=== PATIENT | female | born 1960 | race African-American/Black ===

== ENCOUNTER 2018-04-11 08:33 | Emergency (ER) | payer MEDICAID ==
[~2018-04-11] VITALS: Ht 162.6 cm; Wt 120.0 kg
[2018-04-11 08:44] VITALS: BP 123/70
== END 2018-04-11 18:09 | disposition left against medical advice (07) ==
LOC: ER 11:09
DX: H57.89 Other specified disorders of eye and adnexa (principal); Z53.21 Procedure and treatment not carried out due to patient leaving prior to being seen by health care provider

== ENCOUNTER 2018-04-12 06:01 | Emergency (ER) | payer MEDICAID ==
[~2018-04-12] VITALS: Ht 162.6 cm; Wt 111.0 kg
[2018-04-12] MEDS ORDERED: TETRACAINE 0.5% OPHTH DROPS 4ML LEFTEYE ONE (09:00)
[2018-04-12] MEDS ORDERED: LIDOCAINE/EPINEPHR/TETRACAINE 3ML TP ONE (09:08)
[2018-04-12] MEDS ORDERED: FLUORESCEIN SODIUM 1MG/STRIP LEFTEYE ONE (09:15)
[2018-04-12 10:16] VITALS: BP 137/86
== END 2018-04-12 10:22 | disposition home or self-care (01) ==
LOC: ER 06:01
DX: H10.9 Unspecified conjunctivitis (principal); T15.92XA Foreign body on external eye, part unspecified, left eye, initial encounter; I10 Essential (primary) hypertension; F17.200 Nicotine dependence, unspecified, uncomplicated; X58.XXXA Exposure to other specified factors, initial encounter; Y93.89 Activity, other specified; Y92.89 Other specified places as the place of occurrence of the external cause
CPT/HCPCS: 99283

== ENCOUNTER 2021-11-27 05:58 | Emergency (ER) | payer MEDICAID ==
[~2021-11-27] VITALS: Ht 160 cm; Wt 113.0 kg
[2021-11-27 06:05] VITALS: BP 154/94
[2021-11-27] MEDS ORDERED: IBUPROFEN 400MG TABLET PO ONE (06:30)
[2021-11-27] MEDS ORDERED: ACETAMINOPHEN 325MG TABLET PO ONE (06:45)
[2021-11-27] MEDS ORDERED: ACET-2708 PO (07:14)
== END 2021-11-27 07:39 | disposition home or self-care (01) ==
LOC: ER 05:58
DX: G89.18 Other acute postprocedural pain (principal); M79.674 Pain in right toe(s); I10 Essential (primary) hypertension; F41.9 Anxiety disorder, unspecified; Z98.890 Other specified postprocedural states; Z91.040 Latex allergy status; Z88.0 Allergy status to penicillin; Z91.013 Allergy to seafood
CPT/HCPCS: 73630; 99283

== ENCOUNTER 2022-04-05 05:36 | Emergency (ER) | payer MEDICARE ==
[~2022-04-05] VITALS: Ht 162.6 cm; Wt 118.2 kg
[~2022-04-05 05:36] MED LIST: ACET-2708 PO
[2022-04-05] MEDS ORDERED: TOPUD PO (07:08)
[2022-04-05 07:16] VITALS: BP 114/75
== END 2022-04-05 07:18 | disposition home or self-care (01) ==
LOC: ER 05:36
DX: M25.522 Pain in left elbow (principal); F41.9 Anxiety disorder, unspecified; I10 Essential (primary) hypertension; Z88.0 Allergy status to penicillin; Z91.013 Allergy to seafood; Z91.040 Latex allergy status; Z98.890 Other specified postprocedural states
CPT/HCPCS: 73080; 99283

== ENCOUNTER 2023-09-29 02:59 | Emergency (ER) | payer MEDICAID, MEDICARE ==
[~2023-09-29] VITALS: Ht 162.6 cm; Wt 118.0 kg
[~2023-09-29 02:59] MED LIST changes: +TOPUD PO
[2023-09-29 03:16] VITALS: O2SAT 98
[2023-09-29 04:03] LABS: BASOPHILS % 0.6 % (0.0-2.0); EOSINOPHILS % 0.2 % (0.0-5.0); HEMATOCRIT. 39.1 % (36.0-48.0); LYMPHOCYTES % 16.2 % (20.0-50.0); MEAN CORPUSCULAR HEMOGLOBIN 27.5 pg (28.0-32.0); MEAN CORPUSCULAR HGB CONC 33.2 g/dL (31.0-37.0); MEAN PLATELET VOLUME 8.5 fl (7.4-10.4); PLATELET 342 x1000/uL (130-400); RED BLOOD CELL COUNT 4.71 mill/uL (4.2-5.4); RED CELL DISTRIBUTION WIDTH 14.7 % (11.6-14.6); WHITE BLOOD COUNT 13.8 x1000/uL (4.5-11.0)
[2023-09-29 04:08] LABS: CHLORIDE 102 mEq/L (98-107); POTASSIUM 4.1 mEq/L (3.5-5.1); SODIUM 135 mEq/L (136-145)
[2023-09-29 04:09] LABS: CARBON DIOXIDE 24 mEq/L (21-32)
[2023-09-29 04:10] LABS: CALCIUM 9.4 mg/dL (8.7-10.4)
[2023-09-29 04:14] LABS: CREATININE 0.8 mg/dL (0.6-1.0); GLUCOSE 119 mg/dL (70-105)
[2023-09-29 04:15] LABS: UREA NITROGEN BLOOD 10 mg/dL (9-23)
[2023-09-29 04:16] LABS: ALANINE AMINOTRANSFERASE < 7 IU/L (10-49); ALBUMIN 4.4 g/dL (3.2-4.8); ASPARTATE AMINOTRANSFERASE 13 IU/L (<34)
[2023-09-29 04:17] LABS: BILIRUBIN TOTAL 0.6 mg/dL (0.1-1.0); PROTEIN TOTAL 8.3 g/dL (6.0-8.3)
[2023-09-29 04:18] LABS: HCG SCREEN NEGATIVE
[2023-09-29 04:23] LABS: TROPONIN I HIGH SENSITIVITY < 4 ng/L (3.0-34)
[2023-09-29 05:45] LABS: CLARITY URINE CLEAR (CLEAR); COLOR URINE YELLOW (YELLOW); GLUCOSE URINE NEGATIVE (NEGATIVE); KETONES URINE NEGATIVE (NEGATIVE); LEUKOCYTE ESTERASE URINE TRACE (NEGATIVE); NITRITE URINE NEGATIVE (NEGATIVE); OCCULT BLOOD URINE 2+ (NEGATIVE); PH URINE 6.5 (4.5-8.0); PROTEIN URINE NEGATIVE (NEGATIVE); SPECIFIC GRAVITY URINE 1.015 (1.005-1.030)
[2023-09-29 06:27] LABS: WBC URINE 0-2 /hpf (0-2)
[2023-09-29 06:28] LABS: BACTERIA URINE TRACE; SQUAMOUS EPITHELIAL CELL URINE FEW /lpf (RARE/1+)
[2023-09-29 10:00] VITALS: BP 124/81; PULSE 82; RESP 20; TEMP 98.1
[2023-09-29] MEDS ORDERED: LEVO750T68 MT (10:02)
[2023-09-29] MEDS ORDERED: METR-167 MT (10:02)
[2023-09-29] MEDS: METRONIDAZOLE 500MG TABLET PO ONE (10:39)
[2023-09-29] MEDS: LEVOFLOXACIN 250MG TABLET PO ONE (10:39)
== END 2023-09-29 10:16 | disposition home or self-care (01) ==
LOC: ER 03:10
DX: K57.92 Diverticulitis of intestine, part unspecified, without perforation or abscess without bleeding (principal); I10 Essential (primary) hypertension; Z98.890 Other specified postprocedural states; Z79.899 Other long term (current) drug therapy; Z88.0 Allergy status to penicillin
CPT/HCPCS: 80053; 81003; 81025; 84703; 83605; 83690; 85025; 84484; 36415; 74176; 93005; 99284; Z7610 ×2

== ENCOUNTER 2024-09-20 15:11 | Emergency (ER) | payer OTHER ==
[~2024-09-20] VITALS: Ht 160 cm; Wt 102.0 kg
[~2024-09-20 15:11] MED LIST changes: +LEVO750T68 MT; +METR-167 MT
[2024-09-20 15:14] VITALS: O2SAT 98
[2024-09-20 15:57] VITALS: BP 148/93; PULSE 81; RESP 18; TEMP 36.8; O2SAT 98
== END 2024-09-20 17:38 | disposition left against medical advice (07) ==
LOC: ER 15:11
DX: M54.9 Dorsalgia, unspecified (principal); I10 Essential (primary) hypertension; G47.30 Sleep apnea, unspecified; Z53.21 Procedure and treatment not carried out due to patient leaving prior to being seen by health care provider

== ENCOUNTER 2024-10-19 18:41 | Emergency (ER) | payer OTHER ==
[~2024-10-19] VITALS: Ht 162.6 cm; Wt 102.0 kg
[2024-10-19] MEDS: PREDNISONE 20MG TABLET PO ONE (19:45)
[2024-10-19 19:49] LABS: BASOPHILS % 1.1 % (0.0-2.0); EOSINOPHILS % 2.5 % (0.0-5.0); HEMATOCRIT. 40.1 % (36.0-48.0); HEMOGLOBIN. 13.1 g/dL (12.0-16.0); LYMPHOCYTES % 33.7 % (20.0-50.0); MEAN CORPUSCULAR HEMOGLOBIN 27.5 pg (28.0-32.0); MEAN CORPUSCULAR HGB CONC 32.7 g/dL (31.0-37.0); MONOCYTES % 8.9 % (2.0-8.0); NEUTROPHILS % 53.8 % (40.0-76.0); PLATELET 324 x1000/uL (130-400); RED BLOOD CELL COUNT 4.78 mill/uL (4.2-5.4)
[2024-10-19 20:01] VITALS: PULSE 98; RESP 16; O2SAT 98
[2024-10-19] MEDS: IPRATROPIUM/ALBUTEROL 0.5-3(2.5)MG/3ML NEB HHN ONE (20:01)
[2024-10-19 20:02] LABS: CHLORIDE 106 mEq/L (98-107); POTASSIUM 3.8 mEq/L (3.5-5.1); SODIUM 139 mEq/L (136-145)
[2024-10-19 20:03] LABS: CARBON DIOXIDE 27 mEq/L (21-32)
[2024-10-19 20:04] LABS: CALCIUM 9.1 mg/dL (8.7-10.4)
[2024-10-19 20:08] LABS: CREATININE 0.8 mg/dL (0.6-1.0)
[2024-10-19 20:09] LABS: GLUCOSE 115 mg/dL (70-105); UREA NITROGEN BLOOD 12 mg/dL (9-23)
[2024-10-19 20:37] LABS: TROPONIN I HIGH SENSITIVITY < 4 ng/L (3.0-34)
[2024-10-19 21:38] LABS: CLARITY URINE CLEAR (CLEAR); COLOR URINE ORANGE (YELLOW); GLUCOSE URINE NEGATIVE (NEGATIVE); KETONES URINE NEGATIVE (NEGATIVE); LEUKOCYTE ESTERASE URINE 1+ (NEGATIVE); NITRITE URINE POSITIVE (NEGATIVE); OCCULT BLOOD URINE NEGATIVE (NEGATIVE); PROTEIN URINE NEGATIVE (NEGATIVE); SPECIFIC GRAVITY URINE 1.009 (1.005-1.030)
[2024-10-19 21:55] LABS: BACTERIA URINE TRACE; RBC URINE 0-2 /hpf (0-2); SQUAMOUS EPITHELIAL CELL URINE FEW /lpf (RARE/1+); WBC URINE 0-2 /hpf (0-2)
[2024-10-19] MEDS ORDERED: ALBU18HF2 IH (22:01)
[2024-10-19] MEDS ORDERED: P50 MT (22:01)
[2024-10-19] MEDS ORDERED: CEFP200T14 MT (22:05)
[2024-10-19 22:31] LABS: INFLUENZA TYPE A Presumptive Negative (Pres. Neg.)
[2024-10-19 22:32] LABS: INFLUENZA TYPE B Presumptive Negative (Pres. Neg.)
[2024-10-19 22:33] LABS: RESPIRATORY SYNCYTIAL VIRUS Not Detected (Not Detectd)
[2024-10-19 23:16] VITALS: BP 128/79; PULSE 88; RESP 14; TEMP 36.8; O2SAT 97
== END 2024-10-19 23:16 | disposition home or self-care (01) ==
LOC: ER 18:41
DX: J45.909 Unspecified asthma, uncomplicated (principal); N39.0 Urinary tract infection, site not specified; G47.30 Sleep apnea, unspecified; I10 Essential (primary) hypertension; M19.90 Unspecified osteoarthritis, unspecified site; Z88.0 Allergy status to penicillin; Z20.822 Contact with and (suspected) exposure to COVID-19
CPT/HCPCS: 99285; 71045; 87426; 80048; 81003; 83880; 85025; 87420; 84484; 87804 ×2; 36415; 94640; 93005; J7512; 94070; 94760

== ENCOUNTER 2025-01-31 08:56 | Emergency (ER) | payer OTHER ==
[~2025-01-31] VITALS: Ht 160 cm; Wt 97.0 kg
[~2025-01-31 08:56] MED LIST changes: +ALBU18HF2 IH; +CEFP200T14 MT; +P50 MT
[2025-01-31 09:19] VITALS: BP 133/90; TEMP 36.7; O2SAT 97
[2025-01-31 09:23] VITALS: PULSE 97; RESP 21; O2SAT 98
[2025-01-31] MEDS ORDERED: DIPHENHYDRAMINE 50MG CAPSULE PO ONE (09:45)
[2025-01-31] MEDS: DIPHENHYDRAMINE 25MG CAPSULE PO NR (09:50)
[2025-01-31] MEDS ORDERED: SULF1TAB48 MT (09:50)
== END 2025-01-31 10:35 | disposition home or self-care (01) ==
LOC: ER 09:15
DX: T63.441A Toxic effect of venom of bees, accidental (unintentional), initial encounter (principal); L29.89 Other pruritus; I10 Essential (primary) hypertension; M19.90 Unspecified osteoarthritis, unspecified site; Z88.0 Allergy status to penicillin; Y92.89 Other specified places as the place of occurrence of the external cause
CPT/HCPCS: 99283; Q0163

== ENCOUNTER 2025-04-11 03:20 | Emergency (ER) | payer OTHER ==
[~2025-04-11] VITALS: Ht 162.6 cm; Wt 98.0 kg
[~2025-04-11 03:20] MED LIST changes: -ACET-2708 PO; -CEFP200T14 MT; -LEVO750T68 MT; +LISI20TA31 PO; -METR-167 MT; -P50 MT; -TOPUD PO
[2025-04-11] MEDS: METHYLPREDNISOLONE SOD SUCC 125MG/2ML (ACT-O-VIAL) IV ONE (04:14)
[2025-04-11] MEDS: DIPHENHYDRAMINE 50MG/ML VIAL IV ONE (04:15)
[2025-04-11] MEDS: FAMOTIDINE 20MG/2ML VIAL IV ONE (04:16)
[2025-04-11 04:29] LABS: BASOPHILS % 1.2 % (0.0-2.0); EOSINOPHILS % 2.1 % (0.0-5.0); HEMATOCRIT. 39.2 % (36.0-48.0); HEMOGLOBIN. 12.7 g/dL (12.0-16.0); LYMPHOCYTES % 32.7 % (20.0-50.0); MEAN PLATELET VOLUME 8.3 fl (7.4-10.4); MONOCYTES % 7.4 % (2.0-8.0); NEUTROPHILS % 56.6 % (40.0-76.0); PLATELET 330 x1000/uL (130-400); RED BLOOD CELL COUNT 4.72 mill/uL (4.2-5.4); RED CELL DISTRIBUTION WIDTH 15.2 % (11.6-14.6)
[2025-04-11 04:35] VITALS: PULSE 84; RESP 20; O2SAT 97
[2025-04-11] MEDS: ALBUTEROL (0.083%) 2.5MG/3ML NEB HHN ONE (04:38)
[2025-04-11 04:41] LABS: CREATININE 0.7 mg/dL (0.6-1.0)
[2025-04-11 04:42] LABS: UREA NITROGEN BLOOD 9 mg/dL (9-23)
[2025-04-11 07:54] VITALS: BP 125/84; PULSE 85; RESP 12; TEMP 36.9; O2SAT 100
== END 2025-04-11 08:05 | disposition short-term general hospital (02) ==
LOC: ER 03:28 → CMPBEDREQ 08:32
DX: T78.3XXA Angioneurotic edema, initial encounter (principal); I10 Essential (primary) hypertension; Z88.0 Allergy status to penicillin; Z91.040 Latex allergy status; Z91.013 Allergy to seafood; Z79.899 Other long term (current) drug therapy; X58.XXXA Exposure to other specified factors, initial encounter
CPT/HCPCS: 99291; 96374; 96375; 80048; 85025; 36415; 94640; J2919; J1200; J1308; 94664

== ENCOUNTER 2025-04-26 16:26 | Emergency (ER) | payer OTHER ==
[~2025-04-26] VITALS: Ht 162.6 cm; Wt 95.0 kg
[2025-04-26 17:14] VITALS: O2SAT 99
[2025-04-26] MEDS ORDERED: HYDROCODONE/ACETAMINOPHEN 5/325MG TABLET PO ONE (18:15)
[2025-04-26] MEDS ORDERED: DICL75TA5 MT (18:17)
[2025-04-26] MEDS ORDERED: HYDR-4001 MT (18:17)
[2025-04-26] MEDS ORDERED: LIDO700A30 TP (18:18)
[2025-04-26] MEDS: KETOROLAC 30MG/ML VIAL IM ONE (18:37)
[2025-04-26] MEDS: LIDOCAINE 5% PATCH TOP SCH (18:37)
[2025-04-26 18:38] VITALS: BP 150/90; PULSE 88; RESP 15; TEMP 37.1; O2SAT 99
[2025-04-26] MEDS: HYDROCODONE/ACETAMINOPHEN 5/325MG TABLET PO NR (18:38)
== END 2025-04-26 18:40 | disposition home or self-care (01) ==
LOC: ER 16:26
DX: M25.511 Pain in right shoulder (principal); M54.2 Cervicalgia; I10 Essential (primary) hypertension; Z79.899 Other long term (current) drug therapy; Z88.0 Allergy status to penicillin; Z91.013 Allergy to seafood; Z91.040 Latex allergy status
CPT/HCPCS: 99283; 96372; J1885